=== PATIENT | male | born 1960 ===

== ENCOUNTER 2018-09-10 10:25 | Outpatient (CLI) | payer OTHER | END 2018-09-10 19:06 | disposition home or self-care (01) | LOC: SCT 10:25 | PROVIDERS: ATTEND Specialist | DX: C78.7 Secondary malignant neoplasm of liver and intrahepatic bile duct (principal); C80.1 Malignant (primary) neoplasm, unspecified; K76.9 Liver disease, unspecified | CPT/HCPCS: 47000; 88307; 88313; 88341; 88342 ==

== ENCOUNTER 2018-10-31 11:33 | Outpatient (CLI) | payer OTHER ==
[2018-10-31] MEDS ORDERED: GADOPENTETATE DIMEGLUMINE 15 ML VIAL IV ONE (11:58)
== END 2018-10-31 20:43 | disposition home or self-care (01) ==
LOC: SMI 11:33
PROVIDERS: ATTEND Specialist
DX: G31.9 Degenerative disease of nervous system, unspecified (principal)
CPT/HCPCS: 70553; A9579

== ENCOUNTER 2018-11-02 13:17 | Outpatient (CLI) | payer OTHER ==
[2018-11-02] MEDS ORDERED: GADOPENTETATE DIMEGLUMINE 5 ML VIAL IV ONE (14:27)
[2018-11-02] MEDS ORDERED: GADOPENTETATE DIMEGLUMINE 15 ML VIAL IV ONE (14:27)
[2018-11-02] MEDS ORDERED: NS 50 ML IV ONE (14:28)
== END 2018-11-02 21:00 | disposition home or self-care (01) ==
LOC: SMI 13:17
PROVIDERS: ATTEND Psychiatry & Neurology Neurology
DX: R90.82 White matter disease, unspecified (principal); R60.9 Edema, unspecified
CPT/HCPCS: 70544; 70548; 70551; A9579 ×2